=== PATIENT | female | born 1975 | race African-American/Black ===

== ENCOUNTER 2025-05-18 13:55 | Emergency (ER) | payer MEDICAID, SELFPAY ==
--- NOTE | ~2025-05-18 | XR_ITS ---
CHEST RADIOGRAPH, PA AND LATERAL CLINICAL HISTORY: CP . COMPARISON: None available TECHNIQUE: PA and lateral views of the chest. FINDINGS The cardiomediastinal silhouette is unremarkable. The lungs are clear. IMPRESSION: No focal infiltrate or effusion. Reviewed, dictated and finalized at location A.
--- NOTE | 2025-05-18 13:59 | ECG_ITS ---
Test Date: 2025-05-18 14:03:57 Measurements Intervals [place] Rate: 94 P: 85 MO: 130 QRS: 45 QRSD: 71 T: 54 QT: 329 QTc: 413 Interpretive Statements SINUS RHYTHM No previous ECG available for comparison Electronically Signed On 05-19-2025 16:00:20 CDT by Artemio Hickey M.D.
[2025-05-18 14:00] VITALS: BP 128/90; PULSE 101; RESP 16; TEMP 36.5; O2SAT 100
--- NOTE | 2025-05-18 15:30 | ED_ITS ---
HPI - Chest Pain General Chief Complaint: Chest Pain Stated Complaint: Right Chest pain, lightheadedness Time Seen by Provider: 05/18/25 15:30 Focused HPI: This is a 49 year old female that presents to the ER for chest pain. Ongoing over the last week. Reports she thought she maybe pulled a muscle in her chest. Reports the pain is on the right side of her chest and sharp in nature. Radiates to her back. Reports some associated lightheadedness. Reports family history of heart disease. She does not have any active medical problems GENERAL: Well-appearing, well-nourished, and in no acute distress. HEAD: Normocephalic, atraumatic. CHEST: Clear to auscultation. ?No respiratory distress. HEART: Regular rate and rhythm.? NEURO: ?Alert and oriented x3. Patient screened in triage and initial orders placed.? ?Additional care and disposition to be based upon?diagnostic testing and treatment. Related Data Allergies Allergy/AdvReac Type Severity Reaction Status Date / Time No Known Allergies Allergy Verified 05/18/25 13:56 Course Vital Signs Vital signs: Vital Signs Temperature 97.7 F 05/18/25 14:00 Pulse Rate 101 H 05/18/25 14:00 Respiratory Rate 16 05/18/25 14:00 Blood Pressure 128/90 05/18/25 14:00 Pulse Oximetry 100 05/18/25 14:00 Oxygen Delivery Room Air 05/18/25 14:00 Temperature 97.7 F 05/18/25 14:00 Pulse Rate 101 H 05/18/25 14:00 Respiratory Rate 16 05/18/25 14:00 Blood Pressure 128/90 05/18/25 14:00 Pulse Oximetry 100 05/18/25 14:00 Oxygen Delivery Room Air 05/18/25 14:00 Discharge Plan Discharge Patient Language: Mexican Follow-up/Referrals: PHYSICIAN NOT ON STAFF,NONSTAFF [Primary Care Provider] -
[2025-05-18 16:12] VITALS: BP 129/84; PULSE 81; RESP 20; O2SAT 100
[2025-05-18 16:23] VITALS: PULSE 74
[2025-05-18 16:27] LABS: Hematocrit 40.0 % (37.0-47.0); Hemoglobin 13.3 g/dL (12.0-15.0); Immature Granulocyte Percent A 0.3 % (0-0.5); Lymphocytes Absolute Auto 2.55 K/mm3 (0.9-3.2); Mean Corpuscular HGB Conc 33.3 g/dl (32-36); Mean Corpuscular Hemoglobin 31.2 pg (26-34); Mean Corpuscular Volume 93.9 fl (80-100); Nucleated Red Blood Cells Absolute Auto 0.000 K/mm3 (0.0-0.012); Nucleated Red Blood Cells Perc 0.0 % (0.0-0.2); Platelet Count Result 292 k/mm3 (150-375); Red Blood Count 4.26 M/mm3 (4.2-5.4); White Blood Count 6.9 K/mm3 (4.5-10.0)
--- NOTE | 2025-05-18 16:33 | ED.CHESTPAIN ---
HPI - Chest Pain General Chief Complaint: Chest Pain Stated Complaint: Right Chest pain, lightheadedness Time Seen by Provider: 05/18/25 15:30 History of Present Illness HPI narrative: Pt presents with right sided intermittent sharp upper chest pain for 10 days. Pt was on a trip recently and moved a lot of luggage and thinks it could be muscle but she has a FH of cardiac issues but no personal hx. Pt says she cannot reproduce it with movement or deep breath. Pt notices it at the same level in her back. Related Data Allergies Allergy/AdvReac Type Severity Reaction Status Date / Time No Known Allergies Allergy Verified 05/18/25 13:56 Review of Systems Review of Systems: All systems reviewed & are unremarkable except as noted in HPI and below Exam Const: General: healthy appearing and no acute distress Nutritional Appearance: well nourished Orientation/consciousness: patient oriented x3 Limitations: no limitations Chest: Chest palpation & inspection: normal inspection of the chest and no tenderness Resp: Effort & Inspection: normal respiratory effort Auscultation: clear to auscultation bilaterally Cardio: Rate: regular rate Rhythm: regular rhythm GI: GI Palp: Yes Soft to palpation and No Tenderness to palpation present (GI) Auscultation: normal bowel sounds Back/Spine/Pelvis: Back: no CVA tenderness Skin: General skin exam: normal color Rashes: no rashes Wounds: no wounds Neuro: General: patient oriented x3, moves all extremities, no meningeal signs, no focal motor deficits and CN's II-XI intact bilaterally Cranial nerves: Yes Nystagmus not present Speech: normal speech Extrem: General: normal to inspection and no clubbing, cyanosis or edema Psych: Mental Status: mental status grossly normal Affect: normal affect Attitude: cooperative Course Vital Signs Vital signs: Vital Signs Temperature 97.7 F 05/18/25 14:00 Pulse Rate 101 H 05/18/25 14:00 Respiratory Rate 16 05/18/25 14:00 Blood Pressure 128/90 05/18/25 14:00 Pulse Oximetry 100 05/18/25 14:00 Oxygen Delivery Room Air 05/18/25 14:00 Temperature 97.7 F 05/18/25 14:00 Pulse Rate 76 05/18/25 17:09 Respiratory Rate 18 05/18/25 17:09 Blood Pressure 111/64 05/18/25 17:09 Pulse Oximetry 100 05/18/25 17:09 Oxygen Delivery Room Air 05/18/25 16:12 MDM - Chest Pain MDM Narrative Medical decision making narrative: Pt presents with intermittent right upper chest pain for over a week. does not sound cardiac but pt has FH of cad so will do cardiac work up with trop x 1. If neg home on naprosyn and flexeril. HEART 2. Lab Data 05/18/25 16:21 05/18/25 16:21 Labs: Lab Results 05/18/25 Range/Units 16:21 WBC 6.9 (4.5-10.0) K/mm3 RBC 4.26 (4.2-5.4) M/mm3 Hgb 13.3 (12.0-15.0) g/dL Hct 40.0 (37.0-47.0) % MCV 93.9 (80-100) fl MCH 31.2 (26-34) pg MCHC 33.3 (32-36) g/dl RDW 12.9 (11.5-14.5) % Plt Count 292 (150-375) k/mm3 MPV 8.6 (7.4-10.4) fl Immature Gran % (Auto) 0.3 (0-0.5) % Neut % (Auto) 55.0 (45.5-73.1) % Lymph % (Auto) 36.8 (18.3-44.2) % [place] % (Auto) 6.9 (2.6-8.5) % Eos % (Auto) 0.4 (0-4.4) % Baso % (Auto) 0.6 (0.2-1.2) % Lymph # (Auto) 2.55 (0.9-3.2) K/mm3 [place] # (Auto) 0.5 (0.1-0.6) K/mm3 Eos # (Auto) 0.0 (0-0.3) K/mm3 Baso # (Auto) 0.0 (0.0-0.1) K/mm3 Abs Immat Gran (auto) 0.02 (0.00-0.031) K/mm3 Absolute Neuts (auto) 3.8 (1.3-6.7) K/mm3 Absolute Nucleated RBC 0.000 (0.0-0.012) K/mm3 Nucleated RBC % 0.0 (0.0-0.2) % PT 13.6 (11.1-14.7) Seconds INR 1.0 APTT 23.4 (22.3-36.8) Seconds Sodium 137 (137-145) mmol/L Potassium 3.9 (3.4-5.0) mmol/L Chloride 104 (98-107) mmol/L Carbon Dioxide 26 (22-30) mmol/L Anion Gap 7 (4-12) mmol/L BUN 15 (7-17) mg/dL Creatinine 0.98 (0.7-1.0) mg/dL Estim Creat Clear Calc 48 ml/min Estimated GFR 60 (59 - ) Glucose 94 (65-110) mg/dL Calcium 9.6 (8.4-10.2) mg/dL Total Bilirubin 0.2 (0.2-1.3) mg/dL AST 27 (14-36) U/L ALT 11 (6-35) U/L Alkaline Phosphatase 44 (38-126) U/L Troponin I < 0.012 (0.000-0.034) ng/mL Total Protein 7.5 (6.3-8.2) g/dL Albumin 4.3 (3.5-5.1) g/dL Lipase 51 (23-300) U/L Discharge Plan Discharge Clinical Impression: Atypical chest pain Patient Disposition: Home Condition: Stable Instructions: Antibiotic Form, Chest Wall Pain (ED) Patient Language: Ukrainian Prescriptions: New naproxen [Naprosyn] 500 mg tablet 500 mg PO BID Qty: 20 0RF methocarbamol 750 mg tablet 750 mg PO TID Qty: 30 0RF Follow-up/Referrals: PHYSICIAN NOT ON STAFF,NONSTAFF [Primary Care Provider] - Quality HEART score for chest pain patients History: slightly suspicious ECG: normal Age: > 45 and < 65 years Risk factors: 1 or 2 risk factors Troponin: < or = to 1x normal limit Heart score: 2
[2025-05-18 16:38] LABS: INR 1.0; Prothrombin Time 13.6 Seconds (11.1-14.7)
[2025-05-18 16:39] LABS: Partial Thromboplastin Time 23.4 Seconds (22.3-36.8)
[2025-05-18 17:08] LABS: Alanine Aminotransferase 11 U/L (6-35); Albumin Level 4.3 g/dL (3.5-5.1); Alkaline Phosphatase 44 U/L (38-126); Anion Gap 7 mmol/L (4-12); Aspartate Amino Transferase 27 U/L (14-36); Bilirubin,Total 0.2 mg/dL (0.2-1.3); Blood Urea Nitrogen 15 mg/dL (7-17); Calcium 9.6 mg/dL (8.4-10.2); Carbon Dioxide 26 mmol/L (22-30); Chloride 104 mmol/L (98-107); Estimated CRCL calculation 48 ml/min; Estimated Glomerular Filt Rate 60; Glucose 94 mg/dL (65-110); Lipase 51 U/L (23-300); Potassium 3.9 mmol/L (3.4-5.0); Sodium 137 mmol/L (137-145); Total Protein 7.5 g/dL (6.3-8.2)
[2025-05-18 17:09] VITALS: BP 111/64; PULSE 76; RESP 18; O2SAT 100
--- OUTSIDE RECORDS SUMMARY | 2025-05-18 17:09 | XMS_ITS ---
Author Organization [facility] Address [address] [place] [id number] Care Team Providers Care Chief Design Branch Name Role Phone Mitzi Eastman PA-C Unavailable Unavailabl e Migration, Provider Unavailable Unavailable REASON FOR VISIT EMR-Jose Encounters Encounter Location Date Provider Diagnosis [facility] [address] [place], [place] [phone] 01/29/2025 Provider Migration Plan Of Treatment No Information Progress Notes * Sharon DEWEYB: 6 (49 yo F)Acc No.[id number]:01/29/2025 Patient: Chiara HOLDEN :1975 A ge:49 Y S ex:Female Address:[address] [place] [address];[place], [address] Subjective: * Chief Complaints: * E MR-Jose * * Date:
--- OUTSIDE RECORDS SUMMARY | 2025-05-18 17:09 | XMS_ITS ---
Author Organization [facility] Address [address] [place] [phone] Care Team Providers Care Wound Care Specialist Name Role Phone Mitzi Eastman PA-C Unavailable Unavailabl e Migration, Provider Unavailable Unavailable REASON FOR VISIT EMR-Jose Encounters Encounter Location Date Provider Diagnosis [facility] [address] [place], [place] [phone] 01/28/2025 Provider Migration Plan Of Treatment No Information Progress Notes * Sharon DEWEYB: 6 (49 yo F)Acc No.[id number]:01/28/2025 Patient: Chiara HOLDEN :1975 A ge:49 Y S ex:Female Address:[address] [place] [address];[place], [address] Subjective: * Chief Complaints: * E MR-Jose * * Date:
--- OUTSIDE RECORDS SUMMARY | 2025-05-18 17:09 | XMS_ITS | Patient Health Record ---
Author Organization [facility] Address [address] [place], [place] [phone] Care Team Providers Care Health Communications Specialist Name Role Phone Mitzi Eastman PA-C Unavailable Unavailabl e Migration, Provider Unavailable Unavailable Reason For Referral No Information Encounters Encounter Location Date Provider Diagnosis [facility] [address] [place] [phone] 01/28/2025 Provider Migration [place] [address] [place], [place] [phone] 01/29/2025 Provider Migration Plan Of Treatment No Information Insurance Providers Payer Name Payer Address Payer Phone Subscriber Number Group Number Insured Name Patient Relationship to Insured Coverage Start Date Coverage End Date Medicaid ([employer]) [address] [place] [address] [id number] Chiara Velasquez Self - patient is the insured
[2025-05-18 17:20] LABS: Troponin I < 0.012 ng/mL (0.000-0.034)
[2025-05-18 17:44] VITALS: BP 115/81; PULSE 75; RESP 20; O2SAT 96
== END 2025-05-18 17:46 | disposition home or self-care (01) ==
PROVIDERS: Physician Assistant; Emergency Provider Emergency Medicine
DX: R07.89 Other chest pain (principal)
CPT/HCPCS: 36415; 71046; 80053; 83690; 84484; 85025; 85610; 85730; 93005; 99284